=== PATIENT | female | born 1980 | race Caucasian/White ===

== ENCOUNTER → 2020-09-23 | Outpatient (CLI) | payer OTHER ==
--- NOTE | 2020-09-23 13:32 | KCIC ---
MRI STUDY OF THE LEFT FOOT WITHOUT CONTRAST Clinical indications: Patient fell and injured left foot on September 09, 2020. Left foot pain in the r egion of the head of the metatarsal bones. COMPARISON: Radiographic study of the left foot dated September 09, 2020. TECHNIQUE: Noncontrast MRI sequences of the left foot were performed in all 3 planes. FINDINGS: There is mild bone marrow edema of the plantar aspect of the distal first metatarsal head. There is more extensive diffuse bone marrow edema of the distal shaft and metaphysis and epiphysis of the second and third and fourth and fifth metatarsal bones. There is mild bone marrow edema of the p roximal epiphysis of the fourth metatarsal bone. There is a small focus of bone marrow edema of the p roximal medial corner of the first proximal phalanx. There is mild bone marrow edema of the proximal epiphysis of the third proximal phalanx. There is moderate bone marrow edema of the distal aspect of the cuboid bone. There is moderate bone marrow edema of the plantar aspect of the distal head and nec k of the talus and small focus of bone marrow edema of the medial posterior corner of the body of the talus. There is a small focus of bone marrow edema of the distal lateral corner of the calcaneus. No through and through fracture line or cortical disruption is seen. Findings are consistent with diffu se multiple stress fractures. There is a degenerative cyst of the proximal cuboid bone adjacent to th e calcaneal cuboid joint. No marrow infiltrative process is seen. There is a small joint effusion of the first metatarsal phalangeal joint. No tenosynovitis or tendon rupture is seen. There is mild dors al subcutaneous soft tissue edema. IMPRESSION: Multiple stress fractures of the left foot as discussed above. Most prominent stress frac ture area is seen involving the distal shaft and metaphysis and epiphysis of the second through fifth metatarsal bones. Electronically signed by: Franklin Ambriz MD (09/23/2020 1:30 PM) [id number]
== END ==
LOC: KCIC MRI 12:18
PROVIDERS: ATTEND Physician Assistant
DX: S93.602A Unspecified sprain of left foot, initial encounter (principal); M84.375A Stress fracture, left foot, initial encounter for fracture; X58.XXXA Exposure to other specified factors, initial encounter; Y93.89 Activity, other specified; Y92.89 Other specified places as the place of occurrence of the external cause; Y99.8 Other external cause status
CPT/HCPCS: 73718